=== PATIENT | male | born 1975 | race Hispanic/Latino ===

== ENCOUNTER 2022-03-06 19:56 | Emergency (ER) | payer OTHER ==
[~2022-03-06] VITALS: Ht 170.2 cm; Wt 99.8 kg
[2022-03-06] MEDS ORDERED: DIAZ5TAB PO (20:29)
[2022-03-06] MEDS ORDERED: DIAZEPAM 5 MG TABLET PO ONE (20:30)
[2022-03-06] MEDS ORDERED: HYDROCODONE/ACETAMINOPHEN 10/325 MG TAB PO ONE (20:30)
[2022-03-06] MEDS ORDERED: KETOROLAC 60 MG VIAL (30MG/ML) IM ONE (20:30)
[2022-03-06 20:34] VITALS: BP 158/75
== END 2022-03-06 20:38 | disposition home or self-care (01) ==
LOC: EDH 19:56
DX: M43.6 Torticollis (principal); F41.9 Anxiety disorder, unspecified; I10 Essential (primary) hypertension; F32.A Depression, unspecified
CPT/HCPCS: 99283; 96372; J1885

== ENCOUNTER → 2022-07-21 | Emergency (ER) | payer OTHER ==
[~2022-07-21] MED LIST: DIAZ5TAB PO
== END | disposition left against medical advice (07) ==
LOC: EDH 18:54
DX: R50.9 Fever, unspecified (principal); R05.9 Cough, unspecified; R51.9 Headache, unspecified; Z53.21 Procedure and treatment not carried out due to patient leaving prior to being seen by health care provider